=== PATIENT | female | born 1975 | race Hispanic/Latino ===

== ENCOUNTER 2021-06-30 04:17 | Inpatient (IN) | payer OTHER ==
[2021-06-30] VITALS (7 sets, daily range): BP systolic 131–146; BP diastolic 80–94
[~2021-06-30] VITALS: Ht 149.9 cm; Wt 99.8 kg
[2021-06-30] MEDS ORDERED: ASPIRIN 81 MG CHEW TAB PO ONE (05:00)
[2021-06-30 05:01] LABS: BASOPHILS % 0.3 % (0.0-1.0); EOSINOPHILS # (AUTO) 0.2 (0.0-0.4); EOSINOPHILS % 1.8 % (0.0-6.0); HEMATOCRIT 45.8 % (34.2-44.1); HEMOGLOBIN 15.1 g/dL (12.0-16.0); LYMPHOCYTES # (AUTO) 3.6 (1.0-3.2); LYMPHOCYTES % 30.9 % (18.0-39.1); MEAN CORPUSCULAR HEMOGLOBIN 29.5 pg (28-32); MEAN CORPUSCULAR VOLUME 89.6 fL (81-99); MONOCYTES # (AUTO) 0.5 (0.2-0.8); MONOCYTES % 4.4 % (4.4-11.3); NEUTROPHILS # (AUTO) 7.3 (2.1-6.9); NEUTROPHILS % 62.3 % (38.7-80.0); PLATELET COUNT 347 x10e3/uL (140-360); RED BLOOD COUNT 5.11 x10e6/uL (3.6-5.1); RED CELL DISTRIBUTION WIDTH 13.8 % (11.7-14.4)
[2021-06-30] MEDS ORDERED: DONNATAL/LIDOCAINE/MAALOX 30 ML SUSP PO SCH (05:15)
[2021-06-30 05:25] LABS: ALBUMIN 3.7 g/dL (3.5-5.0); ALBUMIN/GLOBULIN RATIO 0.8 (0.8-2.0); ANION GAP 16.8 mmol/L (8-16); CALCIUM 9.4 mg/dL (8.4-10.2); CREATINE KINASE MB 0.8 ng/mL (0-5.0); CREATININE, SERUM 0.67 mg/dL (0.57-1.11); POTASSIUM 4.8 mmol/L (3.5-5.1)
[2021-06-30 05:31] LABS: CLARITY,URINE CLEAR (CLEAR); COLOR,URINE YELLOW (YELLOW); KETONES,URINE NEGATIVE (NEGATIVE); LEUKOCYTE ESTERASE ,URINE NEGATIVE (NEGATIVE); NITRITE,URINE NEGATIVE (NEGATIVE); PROTEIN,URINE DIPSTICK NEGATIVE (NEGATIVE); URINE UROBILINOGEN 0.2 mg/dL (0.2 - 1)
[2021-06-30 05:34] LABS: BACTERIA,URINE FEW /HPF; EPITHELIAL CELLS,URINE MANY /LPF; RBC,URINE 0-5 /HPF (0-5)
[2021-06-30] MEDS ORDERED: LIDOCAINE VISC 2% SOLN 15 ML UDC ONE (05:35)
[2021-06-30] MEDS ORDERED: BELLADONNA ALK/PHENOBARBITAL 5 ML UDC ONE (05:35)
[2021-06-30] MEDS ORDERED: MAGNESIUM/ALUMINUM/SIMETHICONE 30 ML UDC ONE (05:36)
[2021-06-30 05:46] LABS: AMYLASE 44 U/L (25-125); LIPASE 29 U/L (8-78)
[2021-06-30] MEDS ORDERED: ONDANSETRON HCL INJ 2MG/ML 2ML 2 MG/ML VIAL IV PRN (07:30)
[2021-06-30] MEDS ORDERED: OMEPRAZOLE40 MG PO (07:57)
[2021-06-30] MEDS ORDERED: PANTOPRAZOLE SO40 MG PO (07:57)
[2021-06-30] MEDS ORDERED: ATORVASTATIN CA10 MG PO (07:57)
[2021-06-30] MEDS ORDERED: ASPIRIN EC81 MG PO (07:57)
[2021-06-30] MEDS ORDERED: SUCRALFATE1 GM PO (07:57)
[2021-06-30] MEDS ORDERED: METOPROLOL TART25 MG PO (07:57)
[2021-06-30] MEDS: SODIUM CHLORIDE 0.9% 1000ML 1,000 ML IV SCH ×3 (08:00→23:47)
[2021-06-30] MEDS: ATORVASTATIN 10 MG TAB PO SCH (20:34)
[2021-07-01] VITALS (9 sets, daily range): BP systolic 113–151; BP diastolic 89–97
[2021-07-01 06:03] LABS: BASOPHILS % 0.4 % (0.0-1.0); EOSINOPHILS # (AUTO) 0.2 (0.0-0.4); EOSINOPHILS % 1.6 % (0.0-6.0); HEMATOCRIT 42.3 % (34.2-44.1); HEMOGLOBIN 13.8 g/dL (12.0-16.0); LYMPHOCYTES # (AUTO) 2.8 (1.0-3.2); LYMPHOCYTES % 29.1 % (18.0-39.1); MEAN CORPUSCULAR HEMOGLOBIN 29.2 pg (28-32); MEAN CORPUSCULAR HGB CONC 32.6 g/dL (31-35); MEAN CORPUSCULAR VOLUME 89.6 fL (81-99); MONOCYTES # (AUTO) 0.5 (0.2-0.8); MONOCYTES % 4.9 % (4.4-11.3); NEUTROPHILS # (AUTO) 6.1 (2.1-6.9); NEUTROPHILS % 63.9 % (38.7-80.0); PLATELET COUNT 319 x10e3/uL (140-360); RED BLOOD COUNT 4.72 x10e6/uL (3.6-5.1); RED CELL DISTRIBUTION WIDTH 13.7 % (11.7-14.4)
[2021-07-01 06:17] LABS: ALBUMIN 3.2 g/dL (3.5-5.0); ALBUMIN/GLOBULIN RATIO 0.9 (0.8-2.0); ANION GAP 12.9 mmol/L (8-16); CALCIUM 8.7 mg/dL (8.4-10.2); CREATININE, SERUM 0.63 mg/dL (0.57-1.11); POTASSIUM 3.9 mmol/L (3.5-5.1)
[2021-07-01] MEDS: PANTOPRAZOLE SOD 40 MG TABEC PO SCH (07:30)
[2021-07-01] MEDS: SUCRALFATE 1 GM TAB PO SCH (07:59)
[2021-07-01] MEDS ORDERED: BUPIVACAINE HCL 0.5% INJ 30 ML VIAL INJ ONE (08:51)
[2021-07-01] MEDS ORDERED: PANTOPRAZOLE SOD 40 MG TABEC PO SCH (09:00)
[2021-07-01] MEDS ORDERED: HYDRALAZINE HCL 20 MG/ML VIAL IV PRN (09:30)
[2021-07-01] MEDS: METOPROLOL TARTRATE 25 MG TAB PO SCH (09:36)
[2021-07-01] MEDS: SODIUM CHLORIDE 0.9% 1000ML 1,000 ML IV SCH ×2 (10:12→21:10)
[2021-07-01] MEDS ORDERED: DEXAMETHASONE SOD PHOS INJ 4 MG/ML SDV ONE (12:16)
[2021-07-01] MEDS ORDERED: PROPOFOL IV EMULSION 10 MG/ML 20 ML VIAL ONE (12:16)
[2021-07-01] MEDS ORDERED: KETOROLAC TROMETHAMINE 30 MG/ML VIAL ONE (12:16)
[2021-07-01] MEDS ORDERED: ONDANSETRON HCL INJ 2MG/ML 2ML 2 MG/ML VIAL ONE (12:16)
[2021-07-01] MEDS ORDERED: SEVOFLURANE INHAL SOLN 250 ML PEN BTL ONE (12:16)
[2021-07-01] MEDS ORDERED: LIDOCAINE HCL 2% LOCAL INJ 5 ML SDV VIAL INJ ONE (12:16)
[2021-07-01] MEDS ORDERED: ROCURONIUM BROMIDE 10 MG/ML 5ML VIAL IV ONE (12:16)
[2021-07-01] MEDS ORDERED: POVIDONE IODINE 0.05% 0.05 % ML PO ONE (12:16)
[2021-07-01] MEDS ORDERED: LEVOFLOXACIN 500MG/D5W 100ML 100 ML IV ONE (12:55)
[2021-07-01] MEDS ORDERED: ACETAMINOPHEN 325 MG TAB PO PRN (13:45)
[2021-07-01] MEDS: ONDANSETRON HCL INJ 2MG/ML 2ML 2 MG/ML VIAL IV PRN ×2 (14:45→18:30)
[2021-07-01] MEDS: HYDROCODONE/APAP 5MG-325MG TAB PO PRN ×2 (15:22→21:07)
[2021-07-01] MEDS ORDERED: MAGNESIUM/ALUMINUM/SIMETHICONE 30 ML UDC PO PRN (15:45)
[2021-07-01] MEDS: Morphine 4mg Syringe 4 MG/ML INJ IV PRN ×2 (18:31→23:14)
[2021-07-01] MEDS: ATORVASTATIN 10 MG TAB PO SCH (21:07)
[2021-07-02 00:16] VITALS: BP 124/60
[2021-07-02] MEDS ORDERED: ULTRACET TABLE1 EACH PO (05:43)
[2021-07-02] MEDS: ONDANSETRON HCL INJ 2MG/ML 2ML 2 MG/ML VIAL IV PRN (06:07)
[2021-07-02 06:10] VITALS: BP 151/94
[2021-07-02 07:25] VITALS: BP 131/80
[2021-07-02] MEDS: METOPROLOL TARTRATE 25 MG TAB PO SCH (08:10)
[2021-07-02] MEDS: SUCRALFATE 1 GM TAB PO SCH (08:10)
[2021-07-02] MEDS: PANTOPRAZOLE SOD 40 MG TABEC PO SCH (08:10)
[2021-07-02 08:11] VITALS: BP 131/80
[2021-07-02] MEDS: SODIUM CHLORIDE 0.9% 1000ML 1,000 ML IV SCH (08:26)
== END 2021-07-02 10:56 | disposition home or self-care (01) | DRG 418 ==
LOC: ER 05:10 → ERHOLD 07:20 → MED/SURG 08:32
PROVIDERS: ADMIT Internal Medicine; ATTEND Internal Medicine
PROC: 0FT44ZZ Resection of Gallbladder, Percutaneous Endoscopic Approach (ICD-10-PCS; principal; 2021-07-01 12:30)
DX: K80.12 Calculus of gallbladder with acute and chronic cholecystitis without obstruction (principal); Z68.41 Body mass index [BMI] 40.0-44.9, adult; K76.0 Fatty (change of) liver, not elsewhere classified; E78.5 Hyperlipidemia, unspecified; E66.01 Morbid (severe) obesity due to excess calories; I10 Essential (primary) hypertension; Z88.0 Allergy status to penicillin; Z20.822 Contact with and (suspected) exposure to COVID-19
CPT/HCPCS: 36415; 76705; 80053; 81001; 81025; 82150; 82550; 82553; 83690; 84484; 85025; 88304; 93005; 94799; 96361; 99284; J1100; J1885; J1956; J2001; J2270; J2405; J7030; U0002

== ENCOUNTER → 2022-12-08 | Outpatient (CLI) | payer OTHER ==
[~2022-12-08] MED LIST: ASPIRIN EC81 MG PO; ATORVASTATIN CA10 MG PO; METOPROLOL TART25 MG PO; OMEPRAZOLE40 MG PO; PANTOPRAZOLE SO40 MG PO; SUCRALFATE1 GM PO; ULTRACET TABLE1 EACH PO
== END ==
LOC: RAD 13:24
PROVIDERS: ATTEND Family Medicine Adult Medicine
DX: M79.605 Pain in left leg (principal); M79.604 Pain in right leg
CPT/HCPCS: 93970